=== PATIENT | female | born 1980 | race Caucasian/White ===

== ENCOUNTER → 2023-08-24 08:01 | Outpatient (REF) | payer BC, SELFPAY | LOC: HWEVLT 08:01 | PROVIDERS: ATTENDING PHYSICIAN Radiology Vascular & Interventional Radiology | DX: I83.891 Varicose veins of right lower extremity with other complications (principal) | CPT/HCPCS: 93971 ==

== ENCOUNTER → 2023-09-13 13:27 | Outpatient (REF) | payer BC, SELFPAY | LOC: HWEVLT 13:27 | PROVIDERS: ATTENDING PHYSICIAN Radiology Diagnostic Radiology | DX: I83.891 Varicose veins of right lower extremity with other complications (principal) | CPT/HCPCS: 36471 ==